=== PATIENT | female | born 1970 | race Caucasian/White ===

== ENCOUNTER 2019-11-15 20:12 | Emergency (ER) | payer OTHER ==
[~2019-11-15] VITALS: Ht 180.3 cm; Wt 142.9 kg
[2019-11-15] MEDS ORDERED: SYNTHROID75 MCG (20:22)
[2019-11-15] MEDS ORDERED: GRALISE600 MG (20:22)
[2019-11-15] MEDS ORDERED: TOPAMAX50 MG (20:22)
[2019-11-15] MEDS ORDERED: XANAX1 MG (20:23)
[2019-11-15] MEDS ORDERED: AUBAGIO14 MG (20:23)
[2019-11-15] MEDS ORDERED: WELLBUTRIN XL150 M1 (20:24)
[2019-11-15] MEDS ORDERED: CYCLOBENZAPRINE15 M1 (20:26)
[2019-11-15] MEDS ORDERED: EMGALITY S300 MG/3 M (20:27)
== END 2019-11-15 22:40 | disposition home or self-care (01) ==
LOC: ER 20:12
DX: G35 Multiple sclerosis (principal); R30.0 Dysuria; M60.88 Other myositis, other site